=== PATIENT | male | born 2000 | race Caucasian/White ===

== ENCOUNTER 2022-01-15 20:15 | Emergency (ER) | payer BC ==
[2022-01-15 20:21] VITALS: BP 137/86; PULSE 104; RESP 20; TEMP 98.3
[2022-01-15] MEDS ORDERED: PROPARACAINE 0.5% OPHTH DROPS 15 ML BTL RIGHT EYE STA (21:37)
[2022-01-15] MEDS ORDERED: FLUORESCEIN STRIPS 1 MG STRIP RIGHT EYE ONE (21:38)
[2022-01-15] MEDS ORDERED: ERYTHROMYCIN 5 MG/GM OPHTH OINT 3.5 GM TUBE RIGHT EYE STA (21:54)
[2022-01-15] MEDS ORDERED: KETOROLAC 15 MG/ML 1 ML VIAL IM STA (22:03)
--- NOTE | 2022-01-15 22:05 | ED ---
Eye Problem HPI - General Chief complaint: Eye Problems Stated complaint: Something stuck in eye Time Seen by Provider: 01/15/22 21:37 Source: patient Mode of arrival: ambulatory Limitations: no limitations - History of Present Illness Initial comments: Patient is a 21 year old male who presents to the emergency department with a chief complaint of right eye pain. Patient was working outside working with wood when he itched his right eye. Patient thinks he got wood in his eye. Reports right eye pain. Denies blurry vision, double vision, eye drainage. Denies contact lens use. - Related Data Previous Rx's Medication Instructions Recorded Ibuprofen [Motrin] 800 mg PO Q8H PRN #30 tab 01/15/22 Allergies Allergy/AdvReac Type Severity Reaction Status Date / Time No Known Allergies Allergy Verified 01/15/22 20:21 Review of Systems ROS Statement: Those systems with pertinent positive or pertinent negative responses have been documented in the HPI. ROS Other: All systems not noted in ROS Statement are negative. Past Medical History Past Medical History: GERD/Reflux History of Any Multi-Drug Resistant Organisms: None Reported Past Surgical History: No Surgical Hx Reported Past Psychological History: No Psychological Hx Reported Smoking Status: Never smoker Past Alcohol Use History: None Reported Past Drug Use History: None Reported General Exam Limitations: no limitations General appearance: alert, in no apparent distress Head exam: Present: atraumatic, normocephalic, normal inspection Eye exam: Present: normal appearance (left normal appearing ), PERRL, EOMI, conjunctival injection (right eye). Absent: scleral icterus, periorbital swelling, periorbital tenderness Pupils: Present: normal accommodation Respiratory exam: Present: normal lung sounds bilaterally. Absent: respiratory distress, wheezes, rales, rhonchi, stridor Cardiovascular Exam: Present: regular rate, normal rhythm, normal heart sounds. Absent: systolic murmur, diastolic murmur, rubs, gallop, clicks Neurological exam: Present: alert, oriented X3, CN II-XII intact Psychiatric exam: Present: normal affect, normal mood Skin exam: Present: warm, dry, intact, normal color. Absent: rash Course Vital Signs 01/15/22 20:19 Temperature 98.3 F Pulse Rate 104 H Respiratory 20 Rate Blood Pressure 137/86 O2 Sat by Pulse 99 Oximetry Medical Decision Making - Medical Decision Making This is a 21 year old presenting with right eye pain. Wood's lamp examination reveals corneal abrasion in the superior iris region without evidence of foreign body. Patient given erythromycin ointment. Corneal abrasion discussed with patient in detail. Will send him home with Motrin 800. Patient to follow-up with ophthalmology. Dr. Joshua is my attending. Disposition Clinical Impression: Corneal abrasion, right Disposition: HOME SELF-CARE Condition: Good Instructions (If sedation given, give patient instructions): Corneal Abrasion (ED) Additional Instructions: Apply ointment to eye every 6 hours for the next 3-5 days. Take Motrin as prescribed. Practice good hand hygiene and avoid touching the eye. Follow-up with mule packer in one to 2 days. Return to the emergency department if you experience new, concerning, or worsening symptoms. Prescriptions: Ibuprofen [Motrin] 800 mg PO Q8H PRN #30 tab PRN Reason: Pain Is patient prescribed a controlled substance at d/c from ED?: No Referrals: Scooby Alcantara MD [Primary Care Provider] - 1-2 days
== END 2022-01-15 22:13 | disposition home or self-care (01) ==
LOC: EC 20:15
DX: S05.01XA Injury of conjunctiva and corneal abrasion without foreign body, right eye, initial encounter (principal); K21.9 Gastro-esophageal reflux disease without esophagitis; X58.XXXA Exposure to other specified factors, initial encounter
CPT/HCPCS: 99283; 96372; J1885